=== PATIENT | female | born 1950 | race Caucasian/White ===

== ENCOUNTER 2018-09-29 09:24 | Day surgery (SDC) | payer OTHER ==
[2018-09-29] MEDS ORDERED: Ringers Lactate 1,000 ML IV ONE (09:44)
[2018-09-29] MEDS ORDERED: LIDOCAINE 1% W/EPI 1:100,000 MDV 20 ML VIAL ONE (10:58)
[2018-09-29] MEDS ORDERED: MIDAZOLAM HCL 2 MG/2 ML INJ ONE (12:19)
[2018-09-29] MEDS ORDERED: FENTANYL CITR 100 MCG/2 ML ONE (12:23)
[2018-09-29] MEDS ORDERED: PROPOFOL 200 MG/20 ML VIAL IV ONE (12:23)
[2018-09-29] MEDS ORDERED: LIDOCAINE 2% MPF 5 ML VIAL ONE (12:25)
[2018-09-29] MEDS ORDERED: ONDANSETRON 4 MG/2 ML VIAL ONE (12:28)
[2018-09-29] MEDS ORDERED: KETOROLAC 30 MG/ML INJ ONE (12:52)
== END 2018-09-29 14:15 | disposition home or self-care (01) ==
LOC: OR 09:24
PROVIDERS: ATTEND Obstetrics & Gynecology
PROC: 0UDB7ZX Extraction of Endometrium, Via Natural or Artificial Opening, Diagnostic (ICD-10-PCS; 2018-09-29)
PROC: 0UJD8ZZ Inspection of Uterus and Cervix, Via Natural or Artificial Opening Endoscopic (ICD-10-PCS; 2018-09-29)
PROC: 0UB97ZX Excision of Uterus, Via Natural or Artificial Opening, Diagnostic (ICD-10-PCS; principal; 2018-09-29 10:30)
DX: N93.0 Postcoital and contact bleeding (principal); N84.0 Polyp of corpus uteri; R93.89 Abnormal findings on diagnostic imaging of other specified body structures; R10.31 Right lower quadrant pain; M32.9 Systemic lupus erythematosus, unspecified; E78.5 Hyperlipidemia, unspecified; K21.9 Gastro-esophageal reflux disease without esophagitis; Z85.3 Personal history of malignant neoplasm of breast; K63.5 Polyp of colon; Z88.0 Allergy status to penicillin; Z83.3 Family history of diabetes mellitus
CPT/HCPCS: 58558; 88305; J2704; J2250; J3010; J2405